=== PATIENT | male | born 1960 | race Caucasian/White ===

== ENCOUNTER 2019-06-21 09:20 | Inpatient (IN) ==
[2019-06-21 10:01] LABS: Basophils # 0.1 K/mcL (0.0-0.2); Basophils % 1.1 %; Eosinophils # 0.2 K/mcL (0.0-0.6); Eosinophils % 2.5 %; Hematocrit 47.1 % (37.5-50.1); Hemoglobin 16.7 g/dL (12.9-16.9); Immature Granulocytes % 0.5 % (0-4); Lymphocytes # 2.5 K/mcL (0.6-4.6); Lymphocytes % 25.7 %; Mean Corpuscular HGB Conc 35.5 g/dL (31.6-35.5); Mean Corpuscular Hemoglobin 30.3 pg (28.0-33.3); Mean Corpuscular Volume 85.5 fL (83.0-100.0); Mean Platelet Volume 9.8 fL (9.4-12.4); Monocytes # 0.7 K/mcL (0.0-1.3); Monocytes % 7.1 %; Platelet Count 342 K/mcL (140-400); Red Blood Count 5.51 M/mcL (4.19-5.50); Red Cell Distribution Width 12.2 % (11.5-14.5); Segmented Neutrophils % 63.1 %; White Blood Count 9.6 K/mcL (4.3-11.1)
[2019-06-21 10:08] LABS: Bilirubin,Urine Negative (Negative); Blood,Urine Negative (Negative); Clarity,Urine Clear (Clear); Color,Urine Yellow (Yellow); Glucose,Urine (UA) >=1000 mg/dL (Normal); Ketones,Urine Negative (Negative); Leukocyte Esterase,Urine Negative (Negative); Nitrite,Urine Negative (Negative); Protein,Urine Negative (Neg-Trace); Specific Gravity,Urine 1.018 (1.010-1.025); Urobilinogen,Urine Normal (Normal)
[2019-06-21 10:42] LABS: Acetaminophen < 10 mcg/mL (10-20); BUN/Creatinine Ratio 14 (6-26); Blood Urea Nitrogen 12 mg/dL (8-23); Calcium 9.5 mg/dL (8.6-10.3); Carbon Dioxide 27 mEq/L (23-29); Chloride 98 mEq/L (98-107); Ethanol < 10 mg/dL (Less than 10); Glucose 197 mg/dL (70-105); Osmolality,Calculated 283 (280-300); Salicylate < 2.5 mg/dL (15.0-30.0); Sodium 134 mEq/L (136-145); eGFR For African Americans > 60 (> 60); eGFR For Non-African Americans > 60 (> 60)
[2019-06-21 11:00] LABS: Amphetamine Screen,Urine Negative ng/mL (Cutoff=1000); Barbiturate Screen,Urine Negative ng/mL (Cutoff=200); Benzodiazepines Screen,Urine Negative ng/mL (Cutoff=200); Cannabinoid Screen,Urine Negative ng/mL (Cutoff = 50); Cocaine Screen,Urine Negative ng/mL (Cutoff= 300); Opiate Screen,Urine Negative ng/mL (Cutoff=300); Phencyclidine Screen,Urine Negative ng/mL (Cutoff=25)
[2019-06-21] MEDS ORDERED: hydrOXYzine pamoate 25 MG CAPSULE PO PRN (11:35)
[2019-06-21] MEDS ORDERED: *HR* LORazepam 1 MG TABLET PO PRN (11:35)
[2019-06-21] MEDS ORDERED: traZODone 50 MG TABLET PO PRN (11:35)
[2019-06-21] MEDS ORDERED: Mag Hydrox/Al Hydrox/Simeth 30 ML UDC PO PRN (11:35)
[2019-06-21] MEDS ORDERED: Haloperidol Lactate 5 MG/ML VIAL IM PRN (11:35)
[2019-06-21] MEDS ORDERED: MOM Conc 10 ML UD.LIQ PO PRN (11:35)
[2019-06-21] MEDS ORDERED: Acetaminophen 325 MG TABLET PO PRN (11:35)
[2019-06-21] MEDS ORDERED: *HR* LORazepam 2 MG/ML VIAL IM PRN (11:35)
[2019-06-21] MEDS: Lurasidone 20 MG TABLET PO SCH (17:18)
[2019-06-21] MEDS: *HR* Metformin 500 MG TABLET PO SCH (17:18)
[2019-06-21] MEDS: Artificial Tears SOLN 15 ML BOTTLE BOTH EYES PRN (17:19)
[2019-06-21] MEDS ORDERED: OLANZapine 5 MG TAB.RAPDIS PO SCH (18:00)
[2019-06-21] MEDS: *HR* LORazepam 1 MG TABLET PO SCH (20:21)
[2019-06-21] MEDS: OLANZapine 5 MG TAB.RAPDIS PO SCH (20:21)
[2019-06-22] MEDS: Artificial Tears SOLN 15 ML BOTTLE BOTH EYES PRN ×2 (07:52→15:51)
[2019-06-22] MEDS: amLODIPine 5 MG TABLET PO SCH (08:47)
[2019-06-22] MEDS: BuPROPion XL (24 HR) 150 MG TABLET PO SCH (08:47)
[2019-06-22] MEDS: *HR* Metformin 500 MG TABLET PO SCH ×2 (08:47→16:09)
[2019-06-22 10:18] LABS: Chol/HDL Ratio 7.4 (0-4.9)
[2019-06-22 10:42] LABS: Estimated Average Glucose 183 mg/dl
[2019-06-22] MEDS: Lurasidone 20 MG TABLET PO SCH (19:55)
[2019-06-22] MEDS: *HR* LORazepam 1 MG TABLET PO SCH (20:57)
[2019-06-22] MEDS: OLANZapine 5 MG TAB.RAPDIS PO SCH (20:57)
[2019-06-23] MEDS: BuPROPion XL (24 HR) 150 MG TABLET PO SCH (08:13)
[2019-06-23] MEDS: *HR* Metformin 500 MG TABLET PO SCH ×2 (08:13→16:56)
[2019-06-23] MEDS: amLODIPine 5 MG TABLET PO SCH (08:13)
[2019-06-23] MEDS: Artificial Tears SOLN 15 ML BOTTLE BOTH EYES PRN ×2 (08:15→14:21)
[2019-06-23] MEDS: Lurasidone 20 MG TABLET PO SCH (16:56)
[2019-06-23] MEDS: OLANZapine 5 MG TAB.RAPDIS PO SCH (21:19)
[2019-06-23] MEDS: *HR* LORazepam 1 MG TABLET PO SCH (21:19)
[2019-06-24] MEDS: *HR* Metformin 500 MG TABLET PO SCH (07:53)
[2019-06-24] MEDS: BuPROPion XL (24 HR) 150 MG TABLET PO SCH (07:53)
[2019-06-24] MEDS: amLODIPine 5 MG TABLET PO SCH (07:53)
[2019-06-24] MEDS: Artificial Tears SOLN 15 ML BOTTLE BOTH EYES PRN (07:54)
[2019-06-24 08:24] VITALS: BP 158/102
== END 2019-06-24 12:15 | disposition home or self-care (01) | DRG 885 ==
LOC: EMEROOARM 09:20 → SUATTDRO 11:32 → 1ANU 11:32
PROVIDERS: ADMIT Psychiatry & Neurology Psychiatry; ATTEND Psychiatry & Neurology Psychiatry